=== PATIENT | male | born 1960 | race Caucasian/White ===

== ENCOUNTER 2017-01-26 13:53 | Emergency (ER) | payer MEDICAID ==
[2017-01-26 14:03] LABS: Hematocrit 38.7 % (42.0-52.0); Hemoglobin 13.6 gm/dL (13.5-18.0); Mean Cell Volume 85.1 fl (78-100); Mean Corpuscular Hemoglobin 29.9 pg (27-31); Mean Corpuscular Hgb Conc 35.1 g/dl (32-36); Mean Platelet Volume 10.5 fl (6.0-9.5); Neutrophil # 4.2 K/mm3 (1.3-6.0); Neutrophil % 50.7 % (42-75.0); Platelet Count 226 K/mm3 (150-450); Red Blood Count 4.55 M/mm3 (4.7-6.0); Red Cell Distribution Width 13.3 % (11.5-14.0); White Blood Count 8.2 K/mm3 (4.0-10.5)
--- NOTE | 2017-01-26 14:09 | ERNOTE ---
Dizziness ER Record Date of Service: 01/26/17 Presenting Symptoms: dizziness Time Seen by Provider: 01/26/17 13:58 Source: patient, EMS Exam Limitations: no limitations Immunizations: IMMUNIZATION HX Immunizations Up to Date Yes Allergies/Adverse Reactions: Allergies Allergy/AdvReac Type Severity Reaction Status Date / Time No Known Allergies Allergy Verified 01/26/17 14:01 Home Medications: HOME MEDICATIONS NK [No Home Medication] 01/26/17 [Last Taken Unknown] - History of Present Illness Narrative: 56-year-old white male was brought by EMS from local drinking establishment after syncopal episode. Patient states he was outside helping with the grill and was walking back into the bar when he became lightheaded dizzy and fell to the ground. He did not have any syncope at that time. No chest pain chest pressure palpitations. No shortness of breath. He was then assisted by bystanders back into the bar. After being sat on a chair he became lightheaded and dizzy again and had a witnessed syncopal episode for less than 30 seconds. Reports indicate he had snoring respirations. There are no reports of cyanosis or stopping breathing. He recovered. He did not have seizure activity. He denies any chest pain chest pressure palpitations. He had slight shortness of breath and fatigue after the episode. He apparently was very pale and diaphoretic. Vital signs stable with EMS. Patient was given 4 baby aspirin chew and swallow was brought emergently to the ED. Review of Systems - Review of Systems Constitutional: Present: other - patient denies biting tongue or mouth. Denies loss of bowel or bladder. No history of head injury. No history of seizures. No history of syncope.. Absent: recent illness, fever EYE: Present: no symptoms reported ENT: Present: no symptoms reported Respiratory: Present: no symptoms reported Cardiology: Present: no symptoms reported, syncope. Absent: chest pain, palpitations, edema, claudication Gastrointestinal/Abdominal: Present: no symptoms reported Genitourinary: Present: no symptoms reported Musculoskeletal: Present: no symptoms reported Skin: Present: no symptoms reported Neurological: Present: dizziness/light-headedness. Absent: emotional problems, headache, seizure, weakness, numbness, tingling, tremors, pre-existing deficit Endocrine: Present: no symptoms reported Hematologic/Lymphatic: Present: no symptoms reported All Other Systems: All systems neg except as marked - Patient's Past Medical History Patient History - Medical: No pertinent hx Patient History - Cardiac/Respiratory: No pertinent hx Patient History - Cancer: No Hx of Cancer Patient History - Other: None - Social History Living Situations: spouse Psych History: No pertinent hx Smoking Status: Current every day smoker Alcohol Use: occasionally Drug Use: none - Immunizations Immunizations Up to Date: Yes Physical Exam - Physical Exam General Appearance: Present: wd/wn, alert, no apparent distress Head Exam: Present: normal inspection, no evidence of injury Eye Exam: Normal inspection: bilateral, PERRL: bilateral, EOMI: bilateral Ears, Nose, Throat: Present: normal ENT inspection Neck: Present: normal inspection, nontender Respiratory: Present: no respiratory distress, normal breath sounds, no accessory muscle use, chest nontender, lungs clear Cardiovascular/Chest: Present: regular rate, rhythm, no murmur, normal peripheral pulses Gastrointestinal/Abdominal: Present: normal bowel sounds, nontender, nondistended Extremity Exam: Present: normal inspection Neurological Exam: Present: alert, oriented, normal mood/affect, no motor/ sensory deficits, traffic officer II-XII nml as tested, normal cerebellar test Skin Exam: Present: diaphoresis, pallor ED Progress - Results and Orders Patient's Lab Results:: I have reviewed the patient's lab results. - Vital Signs Patient's Vital Signs:: I have reviewed the patient's vital signs. Vital Signs: Vital Signs 01/26/17 13:54 Temperature 35.8 C L Pulse Rate 66 Respiratory 12 Rate O2 Sat by Pulse 98 Oximetry - EKG EKG: NSR EKG read: Interp. by me EKG Comments: EKG revealed sinus rhythm with a rate 65. Incomplete right bundle-branch block. Possible left atrial enlargement. I did fax this EKG to [facility]. The EKG was reviewed by the ER physician as well as the vat operator on-call. Civil Cad Designer stated to ER physician that he did not see any acute ST-T changes. They stated to me that he would be happy to see the patient if he ruled in. - CT/Ultrasound CT/Ultrasound Narrative: CT brain no acute findings. Chest x-ray no acute findings per radiologist - Progress/Reassessment Chief Complaint: Syncopal Episode Plan - Plan Plan: Recommended to patient I would like to admit him for further evaluation and treatment. At a minimum I think patient should have carotid ultrasounds and echocardiogram. May be additional testing. He has refused admission and leaves the hospital against my medical advice. Risk of syncope, myocardial infarction, fall, head injury, seizure, advice. Patient verbalizes understanding. Patient will also need Holter monitor and/or event recorder. He was given instructions for both seizure precautions and leaves AGAINST MEDICAL ADVICE At discharge vital signs stable. Patient asymptomatic. Patient ambulating in the hallways in the ED without any difficulty or symptomology. Departure Clinical Impression: Syncope, Marijuana abuse - Departure Disposition: Home self-care Condition: Undetermined Instructions: Syncope, [id number] Additional Instructions: Recommended patient no driving. No climbing ladders. No swimming. No engaging in any activity should he have a syncopal episode or seizure he may injure himself or others. He verbalizes understanding. Recommend he follow up with the primary care physician next week for full evaluation. He verbalizes understanding. Patient signs out AGAINST MEDICAL ADVICE
[2017-01-26 14:14] LABS: INR 0.96 INR (0.90-1.10)
[2017-01-26 14:20] LABS: ALT 33 U/L (19-67); AST 19 U/L (0-48); Albumin * 3.7 gm/dl (3.4-5.0); Alkaline Phosphatase * 70 U/L (50-170); Anion Gap 11.2 mmol/L (6.8-13.8); BUN/Creatinine Ratio 15.1 (9.0-21.6); Bilirubin, Total 1.1 mg/dL (0.0-1.1); Blood Urea Nitrogen 14 mg/dL (6-23); Ca. Corrected For Albumin 8.2 mg/dL (8.4-10.2); Calcium * 8.3 mg/dL (7.9-10.9); Chloride 101 mmol/L (97-106); Glucose * 131 mg/dL (70-110); Potassium 3.2 mmol/L (3.4-4.6); Sodium 138 mmol/L (132-142); Total Protein 6.8 gm/dL (6.2-8.2)
[2017-01-26 14:21] LABS: Troponin I Less than 0.017 ng/ml (0.00-0.10)
[2017-01-26 14:57] LABS: Cocaine Ur Negative (NEGATIVE); Urine Barbiturate Negative (NEGATIVE); Urine Benzodiazepines Negative (NEGATIVE); Urine Opiates Negative (NEGATIVE); Urine PCP Negative (NEGATIVE)
[2017-01-26 14:59] LABS: Urine THC Positive (NEGATIVE)
[2017-01-26 15:26] VITALS: BP 95/51
== END 2017-01-26 15:22 | disposition home or self-care (01) ==
LOC: ER 13:53
DX: R55 Syncope and collapse (principal); F12.10 Cannabis abuse, uncomplicated; Z72.0 Tobacco use; Z53.29 Procedure and treatment not carried out because of patient's decision for other reasons
CPT/HCPCS: 36415; 70450; 71010; 80053; 80307; 84484; 85025; 85610; 93005; 99284; G0481